=== PATIENT | male | born 1960 | race African-American/Black ===

== ENCOUNTER 2016-09-28 00:26 | Emergency (ER) | payer OTHER ==
[~2016-09-28] VITALS: Ht 182.9 cm; Wt 65.8 kg
[~2016-09-28 00:26] MED LIST: AMOX500C85 PO; ATEN25TA21 PO; BIAXIN500 MG PO; DEXL60CA4 PO; LANS30CA PO; LIPITOR20 MG PO
[2016-09-28] MEDS ORDERED: PARACETAMOL PO (01:21)
[2016-09-28 01:22] LABS: PLATELET COUNT 262 K/uL (142-355)
[2016-09-28 01:39] LABS: POTASSIUM 3.1 mmol/L (3.6-5.2); SODIUM 134 mmol/L (136-145)
[2016-09-28 02:23] VITALS: BP 132/79; TEMP 98.1
== END 2016-09-28 02:24 | disposition home or self-care (01) ==
LOC: ED 00:26
DX: R07.89 Other chest pain (principal); S29.011A Strain of muscle and tendon of front wall of thorax, initial encounter; E87.6 Hypokalemia
CPT/HCPCS: 36415; 80053; 82550; 84484; 85027; 86318; 93005; 96372; 99283; J1885

== ENCOUNTER 2016-10-21 21:14 | Observation (INO) | payer OTHER ==
[~2016-10-21] VITALS: Ht 152.4 cm; Wt 67.4 kg
[~2016-10-21 21:14] MED LIST changes: +PARACETAMOL PO
[2016-10-21 21:27] VITALS: BP 131/65; TEMP 98.3
[2016-10-21 21:45] LABS: PLATELET COUNT 280 K/uL (142-355)
[2016-10-21 21:55] LABS: POTASSIUM 3.8 mmol/L (3.6-5.2); SODIUM 135 mmol/L (136-145)
[2016-10-21 22:11] LABS: PARTIAL THROMBOPLASTIN TIME 23.6 SECONDS (24.5-33.6)
[2016-10-22] VITALS: BP 124/75; TEMP 98.1
[2016-10-22 00:51] VITALS: BP 124/75; TEMP 98.1; Ht 152.4 cm; Wt 67.4 kg
[2016-10-22 04:00] VITALS: BP 109/66; TEMP 98
[2016-10-22 08:00] VITALS: BP 130/61; TEMP 97.9
[2016-10-22 08:49] LABS: POTASSIUM 3.7 mmol/L (3.6-5.2); SODIUM 139 mmol/L (136-145)
[2016-10-22] MEDS ORDERED: FURO20TA67 PO (10:28)
[2016-10-22] MEDS ORDERED: POTA20TA4 PO (10:28)
[2016-10-22] MEDS ORDERED: KETO10TA34 PO (10:29)
[2016-10-22 12:00] VITALS: BP 97/48; TEMP 98.6
[2016-10-22 13:55] LABS: PLATELET COUNT 241 K/uL (142-355)
[2016-10-22 16:02] VITALS: BP 96/56; TEMP 98.6
== END 2016-10-22 17:00 | disposition home or self-care (01) ==
LOC: ED 21:14 → MED/SURG 22:50
PROVIDERS: Emergency Medicine
DX: R07.89 Other chest pain (principal); E87.6 Hypokalemia
CPT/HCPCS: 36415; 36591; 80053; 82550; 83735; 84484; 85027; 85610; 85730; 86318; 93005; 94760; 99220; 99283; G0378